=== PATIENT | female | born 1960 | race Hispanic/Latino ===

== ENCOUNTER → 2019-02-18 | Day surgery (SDC) | payer MEDICARE ==
[~2019-02-18] MED LIST: ACETAMINOPHEN325 M1 PO; CELEBREX100 MG PO; FLUOXETINE HCL20 MG PO; LEVOTHYROXINE50 MCG PO; LIDOCAINE HCL 2% LOCAL INJ 5 ML SDV VIAL INJ ONE; MIDAZOLAM HCL 2 MG/2 ML VIAL ONE; PROPOFOL IV EMULSION 10 MG/ML 50 ML VIAL ONE; VITAMIN D32000 UNIT PO
--- OUTSIDE RECORDS SUMMARY | 2019-02-18 06:19 | XMS REPORT ---
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 Allergies, Adverse Reactions, Alerts This patient has no known allergies or adverse reactions. Medications This patient has no known medications. Encounters Start Date/Time End Date/Time Encounter Type Admission Type Attending [facility] Facility Care Department Encounter ID 2017-03-31 00:00:00 2017-03-31 00:00:00 Outpatient [facility] [id number] 2017-01-28 13:24:56 2017-01-28 13:24:56 Outpatient [facility] [id number] 2017-01-27 14:27:55 2017-01-27 14:27:55 Outpatient [facility] [id number]
[2019-02-18 08:10] VITALS: BP 131/89
== END | disposition home or self-care (01) ==
LOC: OR 06:13
PROVIDERS: ATTEND Internal Medicine Gastroenterology
DX: Z12.11 Encounter for screening for malignant neoplasm of colon (principal); D17.5 Benign lipomatous neoplasm of intra-abdominal organs; K64.8 Other hemorrhoids; Z71.3 Dietary counseling and surveillance; E66.01 Morbid (severe) obesity due to excess calories; Z88.6 Allergy status to analgesic agent; Z91.018 Allergy to other foods; Z01.810 Encounter for preprocedural cardiovascular examination; Z68.42 Body mass index [BMI] 45.0-49.9, adult
CPT/HCPCS: 45380; 88305; 93005; J2001; J2250; J2704; 45378